=== PATIENT | male | born 1960 | race Two or more races ===

== ENCOUNTER 2020-10-28 06:31 | Day surgery (SDC) | payer OTHER | END 2020-10-28 11:00 | disposition home or self-care (01) | LOC: AMB-ENDOS 06:31 | PROVIDERS: ATTEND Surgery | DX: K62.89 Other specified diseases of anus and rectum (principal); K21.00 Gastro-esophageal reflux disease with esophagitis, without bleeding; K44.9 Diaphragmatic hernia without obstruction or gangrene; K29.50 Unspecified chronic gastritis without bleeding; Z20.822 Contact with and (suspected) exposure to COVID-19 ==